=== PATIENT | male | born 1990 | race Caucasian/White ===

== ENCOUNTER 2025-02-01 16:48 | Emergency (ER) | payer SELFPAY ==
[~2025-02-01] VITALS: Wt 103.0 kg
[~2025-02-01 16:48] MED LIST: CORDROL20 MG PO; HYDROCODONE BIT1 T11 PO
[2025-02-01] MEDS ORDERED: SUBOXONE 8 MG-1 EACH BC (16:58)
[2025-02-01] MEDS ORDERED: CEPHALEXIN500 M1 PO (17:07)
== END 2025-02-01 17:19 | disposition home or self-care (01) ==
LOC: ED 16:48
DX: K02.9 Dental caries, unspecified (principal); Z79.899 Other long term (current) drug therapy